=== PATIENT | male | born 1990 | race Caucasian/White ===

== ENCOUNTER 2021-03-02 06:51 | Day surgery (SDC) | payer OTHER, MEDICARE, MEDICAID ==
[~2021-03-02] VITALS: Ht 177.8 cm; Wt 68.2 kg
[~2021-03-02 06:51] MED LIST: RINGERS SOLUTION,LACTATED 1,000 ML IV ONE
[2021-03-02] MEDS ORDERED: ONDANSETRON HCL 4 MG/2 ML VIAL IVP ONE (06:52)
[2021-03-02] MEDS ORDERED: DEXAMETHASONE SOD PHOS 4 MG/ML VIAL IVP ONE (06:52)
[2021-03-02] MEDS ORDERED: PROPOFOL 1% 20 ML VIAL IVP ONE (06:52)
[2021-03-02] MEDS ORDERED: SUCCINYLCHOLINE CHLORIDE 20 MG/ML 10 ML VIAL IVP ONE (06:52)
[2021-03-02] MEDS ORDERED: FentaNYL CITRATE PF 100 MCG/2 ML VIAL IVP ONE (06:52)
[2021-03-02 07:25] LABS: COVID AG,FIA SOURCE NASOPHARYNGEAL
[2021-03-02] MEDS ORDERED: CLOB10TA PO (07:28)
[2021-03-02] MEDS ORDERED: LACO100 PO (07:28)
[2021-03-02] MEDS ORDERED: POLY17PO47 PO (07:28)
[2021-03-02] MEDS ORDERED: TAMS-13 PO (07:28)
[2021-03-02] MEDS ORDERED: TOPI25 PO (07:28)
[2021-03-02] MEDS ORDERED: OMEP20 PO (07:28)
[2021-03-02] MEDS ORDERED: RIBO100T5 PO (07:28)
[2021-03-02] MEDS ORDERED: CANN100S TP (07:28)
[2021-03-02] MEDS ORDERED: PERA6TAB PO (07:28)
[2021-03-02] MEDS ORDERED: RINGERS SOLUTION,LACTATED 1,000 ML IV ONE (07:30)
[2021-03-02 07:32] LABS: BASOPHILS % (AUTO) 0.8 % (0.0-2.0); EOSINOPHILS % (AUTO) 5.8 % (1.0-6.0); HEMATOCRIT 38.1 % (41-53); HEMOGLOBIN 12.5 g/dL (13.5-17.5); LYMPHOCYTES # (AUTO) 2.2 K/uL (1.0-4.8); MEAN CORPUSCULAR HEMOGLOBIN 25.8 pg (26.0-34.0); MEAN CORPUSCULAR HGB CONC 32.8 G/dL (31.0-37.0); MEAN CORPUSCULAR VOLUME 79 fL (80-100); MONOCYTES # (AUTO) 0.3 K/uL (0.1-1.0); MONOCYTES % (AUTO) 6.5 % (2.0-9.0); NEUTROPHILS # (AUTO) 2.3 K/uL (1.8-7.7); NEUTROPHILS % (AUTO) 43.9 % (40.0-70.0); PLATELET COUNT (AUTO) 124 K/uL (150-450); RED BLOOD CELL COUNT(AUTO) 4.85 MIL/uL (4.50-5.90); RED CELL DISTRIBUTION WIDTH 15.1 % (11.5-14.5)
[2021-03-02 07:44] LABS: PROTHROMBIN TIME 11.1 SEC (9.4-11.6)
[2021-03-02 07:45] LABS: ALANINE AMINOTRANSFERASE 35 U/L (12-78); ALBUMIN 3.6 g/dL (3.4-5.0); ALKALINE PHOSPHATASE 151 U/L (46-116); ANION GAP 8 mmol/L (8-16); ASPARTATE AMINOTRANSFERASE 19 U/L (15-37); BILIRUBIN,TOTAL 0.3 mg/dL (0.1-1.0); CALCIUM, TOTAL 8.1 mg/dL (8.8-10.5); CARBON DIOXIDE 26 mmol/L (22-29); CHLORIDE 102 mmol/L (98-107); CREATININE 0.58 mg/dL (0.60-1.30); GLOMERULAR FILTR. RATE CALC > 60 mL/min (>60); GLUCOSE,RANDOM 96 mg/dL (70-110); SODIUM SERUM 136 mmol/L (136-145); TOTAL PROTEIN, SERUM 7.7 g/dL (6.4-8.2); UREA NITROGEN, BLOOD 15 mg/dL (7-18)
[2021-03-02] MEDS ORDERED: AMPICILLIN SODIUM 1 GM/VIAL ONE (08:42)
[2021-03-02] MEDS ORDERED: SODIUM CHLORIDE 0.9% 100 ML ONE (08:42)
[2021-03-02] MEDS ORDERED: SODIUM CHLORIDE 0.9% 10 ML ONE (08:42)
[2021-03-02] MEDS ORDERED: MEPERIDINE-PF 25 MG/ML VIAL IVP PRN (09:00)
[2021-03-02] MEDS ORDERED: HYDROmorphone 2 MG/ML VIAL IVP PRN (09:00)
[2021-03-02] MEDS ORDERED: FentaNYL CITRATE PF 100 MCG/2 ML VIAL IVP PRN (09:00)
== END 2021-03-02 11:15 | disposition home or self-care (01) ==
LOC: SURGERY 06:51
PROVIDERS: ATTEND Dentist General Practice
DX: K02.9 Dental caries, unspecified (principal); K05.30 Chronic periodontitis, unspecified; K03.6 Deposits [accretions] on teeth; K06.1 Gingival enlargement; G80.9 Cerebral palsy, unspecified; K21.9 Gastro-esophageal reflux disease without esophagitis; F41.9 Anxiety disorder, unspecified; Z79.01 Long term (current) use of anticoagulants; Z79.899 Other long term (current) drug therapy; Z98.890 Other specified postprocedural states; Z88.8 Allergy status to other drugs, medicaments and biological substances; G40.909 Epilepsy, unspecified, not intractable, without status epilepticus; Z93.1 Gastrostomy status
CPT/HCPCS: 36415; 41899; 71045; 80053; 85025; 85610; 85730; 87426; 93005; C9803; J0290; J0330; J1100; J2405; J2704; J3010; J7050; J7120